=== PATIENT | female | born 1945 | race Caucasian/White ===

== ENCOUNTER 2023-06-29 07:46 | Day surgery (SDC) | payer MEDICARE, OTHER ==
[2023-06-29] MEDS ORDERED: Lactated Ringers 1,000 ML IV SCH (08:00)
[2023-06-29] MEDS ORDERED: Sodium Chloride 0.9% 10 ML Syringe FLUSH PRN (08:00)
[2023-06-29] MEDS ORDERED: Propofol 200 MG/20 ML SDV ONE (08:22)
[2023-06-29] MEDS ORDERED: Midazolam 1 MG/ML 2 ML SDV ONE (08:22)
== END 2023-06-29 11:20 | disposition home or self-care (01) ==
LOC: LL.SDS 07:46
PROVIDERS: ATTEND Surgery
DX: K57.30 Diverticulosis of large intestine without perforation or abscess without bleeding (principal); R19.4 Change in bowel habit; I10 Essential (primary) hypertension; E78.5 Hyperlipidemia, unspecified; E66.01 Morbid (severe) obesity due to excess calories; Z68.41 Body mass index [BMI] 40.0-44.9, adult; Z88.5 Allergy status to narcotic agent; Z88.8 Allergy status to other drugs, medicaments and biological substances; Z79.899 Other long term (current) drug therapy; Z90.89 Acquired absence of other organs; Z96.653 Presence of artificial knee joint, bilateral
CPT/HCPCS: 00812; 45378; J2250; J2704; J7120